=== PATIENT | female | born 1950 | race American Indian/Alaskan Native ===

== ENCOUNTER 2016-07-21 12:10 | Outpatient (CLI) | payer MEDICARE ==
--- NOTE | 2016-07-22 13:27 | Ultrasound Report ---
Thyroid ultrasound: The right thyroid lobe measures 14 x 17 x 36 mm. The echo pattern throughout the right lobe is slightly heterogeneous. There is an 11 mm sharply defined anechoic mass just medial to the jugular vein in the mid to upper lobe. Slightly inferiorly to this there is a 7 mm echolucent mass with a echogenic focus centrally. The left lobe measures 4 x 3.7 x 8.6 cm. There is a heterogeneous but relatively isoechoic mass occupying most of the lobe measuring 3.4 x 5.3 x 7.3 cm. The margins that are visualized are sharp. The inferior margin is not well visualized. There is mild peripheral vascularity with color imaging. The isthmus has a thickness of 6 mm. There is a 17 mm slightly heterogeneous sharply defined iso-dense mass in the right side of the isthmus. There is mild peripheral vascularity. Impressions: 1. 2 benign right lobe cysts. 2. Large left lobe mass having no overt malignant characteristics. 3. Low suspicion right isthmus mass.
== END 2016-07-21 12:11 | disposition home or self-care (01) ==
LOC: US 12:10
PROVIDERS: ATTEND Hospitalist
DX: E04.1 Nontoxic single thyroid nodule (principal)
CPT/HCPCS: 76536

== ENCOUNTER 2016-08-09 07:57 | Outpatient (CLI) | payer MEDICARE ==
--- NOTE | 2016-08-11 10:46 | Nuclear Medicine Report ---
NUCLEAR MEDICINE THYROID UPTAKE MULTIPLE: HISTORY: Left thyroid mass. FINDINGS: Correlation is made with the thyroid ultrasound performed 07/21/16. Ultrasound demonstrates a rather large left lobe mass measuring up to 5.3 cm. The scintigraphic images demonstrate slightly decreased uptake in the inferior left thyroid lobe which appears to correlate with the nodule on ultrasound. 4 hour uptake measures 5.3%. Normal range 4-18%. 24 hour uptake measures 15.6%. Normal range 18-36%.
== END 2016-08-09 07:58 | disposition home or self-care (01) ==
LOC: NM 07:57
PROVIDERS: ATTEND Hospitalist
DX: E04.1 Nontoxic single thyroid nodule (principal)
CPT/HCPCS: 78012; A9516

== ENCOUNTER 2016-08-16 07:58 | Day surgery (SDC) | payer MEDICARE ==
[2016-08-16 10:27] VITALS: BP 168/75
--- NOTE | 2016-08-16 11:14 | Ultrasound Report ---
ULTRASOUND BIOPSY THYROID HISTORY: Thyroid mass. FINDINGS: Informed consent was obtained. Sterile technique was utilized. 1% lidocaine for skin anesthesia. Using ultrasound guidance, 2 fine needle aspirations and one Rotex biopsy was obtained from the dominant nodule in the mid left thyroid lobe measuring approximately--------. The samples were deemed adequate by the pathologist on site. No complications. IMPRESSION: Successful ultrasound-guided biopsy of the dominant nodule in left thyroid lobe.
== END 2016-08-16 11:05 | disposition home or self-care (01) ==
LOC: OPU 07:58
PROVIDERS: ATTEND Hospitalist
DX: E07.89 Other specified disorders of thyroid (principal); I10 Essential (primary) hypertension; E11.9 Type 2 diabetes mellitus without complications; E78.5 Hyperlipidemia, unspecified
CPT/HCPCS: 60100; 76942; 88112; 88172; 88173; 88305